=== PATIENT | female | born 1935 | race Caucasian/White ===

== ENCOUNTER 2023-03-27 06:09 | Outpatient (CLI) | payer MEDICARE ==
[2023-03-27] VITALS (25 sets, daily range): BP systolic 43–152; BP diastolic 15–99; PULSE 62–103
[~2023-03-27 06:09] MED LIST: ASPI-1071 PO; CALC300T4 PO; CHOL500044 PO; HYDR-3965 PO; IBUP-1984 PO; MULT-1085 PO; [UNRECOGNIZED DRUG - OTHER] PO
== END 2023-03-27 23:59 | disposition home or self-care (01) ==
LOC: CARD DIAG 06:09
PROVIDERS: ATTEND Internal Medicine Interventional Cardiology
DX: R55 Syncope and collapse (principal)
CPT/HCPCS: 93660